=== PATIENT | male | born 1995 ===

== ENCOUNTER 2017-11-29 21:46 | Emergency (ER) | payer MEDICAID ==
[2017-11-29 22:04] VITALS: BP 162/77; PULSE 85; RESP 18; TEMP 98.7; O2SAT 97
--- NOTE | 2017-11-29 23:06 | C.PDOC ---
History Of Present Illness 22 year old male presents to the ED c/o bilateral eye itching, redness and swelling for the past month. Patient states he had been using antibiotic eye drops until 2 days ago with minimal relief. Patient also reports some eye discharge after waking up from sleep. Patient has not gone to see and hip hop performers yet. Patient denies fever, chills, visual changes, nausea, vomit. Time Seen by Provider: 11/29/17 22:18 Chief Complaint (Nursing): ENT Problem History Per: Patient History/Exam Limitations: no limitations Onset/Duration Of Symptoms: Days Current Symptoms Are (Timing): Still Present Injury To Eye?: No Quality: Burning Wears Contact Lens?: No Associated Symptoms: Swelling, Itching, Discharge From Eye Recent travel outside of the [place]: No Additional History Per: Patient Past Medical History Reviewed: Historical Data, Nursing Documentation, Vital Signs Vital Signs: Last Vital Signs Temp 98.7 F 11/29/17 22:01 Pulse 85 11/29/17 22:01 Resp 18 11/29/17 22:01 BP 162/77 H 11/29/17 22:01 Pulse Ox 97 11/30/17 00:19 - Medical History PMH: Asthma Denies: Chronic Kidney Disease Surgical History: No Surg Hx Family History: States: Unknown Family Hx - Social History Hx Alcohol Use: Yes Hx Substance Use: No - Immunization History Hx Influenza Vaccination: Yes Review Of Systems Constitutional: Negative for: Fever, Chills Eyes: Positive for: Redness. Negative for: Vision Change ENT: Negative for: Ear Pain, Ear Discharge, Nose Discharge, Nose Congestion Respiratory: Negative for: Cough Skin: Negative for: Rash Physical Exam - Physical Exam Appears: Non-toxic, No Acute Distress Skin: Normal Color, Warm, Dry Head: Atraumatic, Normacephalic Eye(s): bilateral: Normal Inspection, PERRL, EOMI, Other (VA 20/20, minimal ciliary injection, minimal discoloration to infraorbital areas, no swelling) Ear(s): Bilateral: Normal Nose: No Discharge Oral Mucosa: Moist Throat: Normal, No Erythema, No Exudate Neck: Normal ROM, Supple Extremity: Normal ROM Neurological/Psych: Oriented x3, Normal Speech Gait: Steady ED Course And Treatment O2 Sat by Pulse Oximetry: 97 (ON RA) Pulse Ox Interpretation: Normal Progress Note: Patient was advised to follow up with hip hop performers. Disposition Counseled Patient/Family Regarding: Diagnosis, Need For Followup, Rx Given - Disposition Referrals: Rudolph Chandra MD [Staff Provider] - Disposition: HOME/ ROUTINE Disposition Time: 23:04 Condition: STABLE Additional Instructions: Take meds as directed Follow up with Eye doctor Return to ER if worse Prescriptions: Cetirizine HCl [Zyrtec] 10 mg PO DAILY #14 capsule Olopatadine 0.1% Opht [Patanol 5 Ml] 1 drop OP BID #1 bottle Instructions: Conjunctivitis (Noninfectious Pinkeye) (DC) Forms: [email or web address] (Turkmen) - Clinical Impression Clinical Impression: Allergic conjunctivitis - PA / [employer] / Resident Statement MD/DO has reviewed & agrees with the documentation as recorded. - Scribe Statement The provider has reviewed the documentation as recorded by the Scribe Bert Arambula All medical record entries made by the Scribe were at my direction and personally dictated by me. I have reviewed the chart and agree that the record accurately reflects my personal performance of the history, physical exam, medical decision making, and the department course for this patient. I have also personally directed, reviewed, and agree with the discharge instructions and disposition.
== END 2017-11-29 23:10 | disposition home or self-care (01) ==
LOC: C.ER 21:46
DX: H10.13 Acute atopic conjunctivitis, bilateral (principal)